=== PATIENT | female | born 1960 | race Caucasian/White ===

== ENCOUNTER 2016-10-12 13:54 | Outpatient (CLI) | payer MEDICAID | END 2016-10-12 13:55 | disposition home or self-care (01) | DX: Z00.00 Encounter for general adult medical examination without abnormal findings (principal); Z80.3 Family history of malignant neoplasm of breast ==

== ENCOUNTER 2017-02-10 14:11 | Outpatient (CLI) | payer MEDICAID | END 2017-02-10 14:12 | disposition home or self-care (01) | DX: R60.0 Localized edema (principal); I10 Essential (primary) hypertension; E03.9 Hypothyroidism, unspecified ==

== ENCOUNTER 2017-02-14 08:18 | Outpatient (CLI) | payer MEDICAID | END 2017-02-14 08:19 | disposition home or self-care (01) | DX: R60.0 Localized edema (principal) ==

== ENCOUNTER 2017-11-15 12:12 | Outpatient (CLI) | payer MEDICAID ==
--- NOTE | 2017-11-15 13:37 | XRAY Report ---
TWO VIEW CHEST: 11/15/2017 CLINICAL INDICATION: Cough. COMPARISON: 07/27/2015. FINDINGS: Frontal and lateral views of the chest demonstrate a normal cardiac silhouette. The lungs are clear. No effusion or pneumothorax is present. IMPRESSION: NORMAL CHEST. TD: 11/15/2017 13:36
== END 2017-11-15 12:13 | disposition home or self-care (01) ==
LOC: DI 12:12
PROVIDERS: ATTEND Nurse Practitioner Family
DX: R05 Cough (principal)
CPT/HCPCS: 71046

== ENCOUNTER 2018-01-30 06:36 | Outpatient (CLI) | payer MEDICAID ==
[2018-01-30 07:19] LABS: BASOPHILS # (AUTO) 0.1 10^3/uL (0.0-0.1); BASOPHILS % (AUTO) 1.1 %; EOSINOPHILS # (AUTO) 0.2 10^3/uL (0.0-0.7); EOSINOPHILS % (AUTO) 2.3 %; HGB - HEMOGLOBIN 15.1 g/dL (12.0-16.0); LYMPHOCYTES # (AUTO) 1.9 10^3/uL (1.5-3.5); LYMPHOCYTES % (AUTO) 29.9 %; MEAN CORPUSCULAR HEMOGLOBIN 30.6 pg (27.0-31.0); MEAN CORPUSCULAR HGB CONC 34.2 g/dL (32.0-36.0); MEAN CORPUSCULAR VOLUME 89.5 fL (81.0-99.0); MEAN PLATELET VOLUME 8.3 fL (7.9-10.8); MONOCYTES # (AUTO) 0.7 10^3/uL (0.0-1.0); MONOCYTES % (AUTO) 10.4 %; NEUTROPHILS # (AUTO) 3.7 10^3/uL (1.5-6.6); NEUTROPHILS % (AUTO) 56.3 %; PLT - PLATELET COUNT 223 10^3/uL (130-450); RED BLOOD COUNT 4.92 10^6/uL (4.20-5.40); RED CELL DISTRIBUTION WIDTH 13.4 % (12.0-15.0); WHITE BLOOD COUNT 6.5 x10^3/uL (4.8-10.8)
[2018-01-30 07:23] LABS: ALBUMIN 4.4 g/dL (3.2-5.5); ALBUMIN/GLOBULIN RATIO 1.4 (1.0-2.2); ALKALINE PHOSPHATASE 56 IU/L (42-121); ALT ALANINE AMINOTRANSFERASE 80 IU/L (10-60); AST ASPARTATE AMINOTRANSFERASE 55 IU/L (10-42); BILIRUBIN,TOTAL 0.7 mg/dL (0.2-1.0); BUN - BLOOD UREA NITROGEN 18 mg/dL (6-20); CALCIUM 9.4 mg/dL (8.5-10.3); CARBON DIOXIDE - CO2 29 mmol/L (21-32); CHLORIDE 98 mmol/L (101-111); CHOL/HDL RATIO 4.7 (<4.4); CHOLESTEROL 237 mg/dL; GFR - MDRD 57 (>89); GLUCOSE 120 mg/dL (70-100); HDL CHOLESTEROL 50 mg/dL; LDL CHOLESTEROL,CALCULATED 160 mg/dL; LDL/HDL RATIO 3.2 (<4.4); SODIUM 137 mmol/L (135-145); TOTAL PROTEIN 7.6 g/dL (6.7-8.2); VLDL CHOLESTEROL 27 mg/dL
== END 2018-01-30 06:37 | disposition home or self-care (01) ==
LOC: LAB 06:36
PROVIDERS: ATTEND Nurse Practitioner Family
DX: I10 Essential (primary) hypertension (principal); E78.5 Hyperlipidemia, unspecified; E03.9 Hypothyroidism, unspecified
CPT/HCPCS: 36415; 80053; 80061; 83721; 84443; 85025

== ENCOUNTER 2018-03-15 12:44 | Outpatient (CLI) | payer MEDICAID ==
--- NOTE | 2018-03-15 14:46 | Mammography Report ---
BILATERAL MAMMOGRAM WITH RIGHT BREAST ULTRASOUND: 03/15/2018 HISTORY: Palpable right breast lump, right breast itching. TECHNIQUE: Bilateral digital CC and MLO projections with additional spot compression and true lateral views of the right breast. FINDINGS: The breast tissue is heterogeneously dense. A few scattered benign appearing calcifications are seen in both breasts. There is no dominant mass, skin thickening, or obvious architectural distortion. There is asymmetric increased density in the right upper outer quadrant in comparison to the left. No abnormality is seen in the 6:30 position right breast at the site of the clinically palpable lump. RIGHT BREAST ULTRASOUND TECHNIQUE: Real-time scanning was performed with sales representative girls' apparel static images obtained. FINDINGS: Ultrasound examination is performed of the right upper outer quadrant and the right 6:30 position. No cystic or solid mass, abnormal fluid collection or other abnormality is seen. IMPRESSION: 1. PROBABLY BENIGN FINDING RIGHT BREAST. BI-RADS CATEGORY 3 - PROBABLE BENIGN FINDING. SHORT-TERM FOLLOW UP UNILATERAL RIGHT BREAST MAMMOGRAM IN 6 MONTHS FOR ASYMMETRIC INCREASED DENSITY RIGHT UPPER OUTER QUADRANT. NO FINDING TO ACCOUNT FOR THE PALPABLE LUMP IS SEEN. STANDARD QUALIFYING STATEMENTS 1. This examination was reviewed with the aid of Computer-Aided Detection (CAD) . 2. A negative or benign imaging report should not delay biopsy if clinically suspicious findings are present. Consider surgical consultation if warranted. More than 5 % of cancers are not identified by imaging. 3. Dense breasts may obscure an underlying neoplasm. TD: 03/15/2018 14:15 REVISED: REPORT ORIG. SIGNED ON 03/15/2018@1552; ORDERS LINKED ON 2017jll MTDD
== END 2018-03-15 12:45 | disposition home or self-care (01) ==
LOC: DI 12:44
PROVIDERS: ATTEND Nurse Practitioner Family
DX: N63.13 Unspecified lump in the right breast, lower outer quadrant (principal)
CPT/HCPCS: 76642; 77066

== ENCOUNTER 2018-08-20 07:27 | Outpatient (CLI) | payer MEDICAID ==
[2018-08-20 07:43] LABS: BASOPHILS # (AUTO) 0.1 10^3/uL (0.0-0.1); BASOPHILS % (AUTO) 1.6 %; EOSINOPHILS # (AUTO) 0.3 10^3/uL (0.0-0.7); EOSINOPHILS % (AUTO) 4.4 %; HGB - HEMOGLOBIN 14.8 g/dL (12.0-16.0); LYMPHOCYTES # (AUTO) 1.8 10^3/uL (1.5-3.5); MEAN CORPUSCULAR HEMOGLOBIN 31.2 pg (27.0-31.0); MEAN CORPUSCULAR HGB CONC 34.2 g/dL (32.0-36.0); MEAN CORPUSCULAR VOLUME 91.1 fL (81.0-99.0); MEAN PLATELET VOLUME 7.5 fL (7.9-10.8); MONOCYTES # (AUTO) 0.5 10^3/uL (0.0-1.0); MONOCYTES % (AUTO) 8.8 %; NEUTROPHILS # (AUTO) 3.2 10^3/uL (1.5-6.6); NEUTROPHILS % (AUTO) 54.2 %; PLT - PLATELET COUNT 239 10^3/uL (130-450); RED BLOOD COUNT 4.74 10^6/uL (4.20-5.40); RED CELL DISTRIBUTION WIDTH 13.2 % (12.0-15.0); WHITE BLOOD COUNT 5.8 x10^3/uL (4.8-10.8)
[2018-08-20 08:00] LABS: HB2 TOTAL 16.1 g/dL; HEMOGLOBIN A1C 0.61 g/dL; HEMOGLOBIN A1C % 5.6 % (4.6-6.2)
[2018-08-20 08:03] LABS: ALBUMIN 4.3 g/dL (3.2-5.5); ALBUMIN/GLOBULIN RATIO 1.5 (1.0-2.2); ALKALINE PHOSPHATASE 57 IU/L (42-121); ALT ALANINE AMINOTRANSFERASE 66 IU/L (10-60); AST ASPARTATE AMINOTRANSFERASE 46 IU/L (10-42); BILIRUBIN,TOTAL 0.9 mg/dL (0.2-1.0); BUN - BLOOD UREA NITROGEN 13 mg/dL (6-20); CALCIUM 9.4 mg/dL (8.5-10.3); CARBON DIOXIDE - CO2 31 mmol/L (21-32); CHLORIDE 100 mmol/L (101-111); CHOL/HDL RATIO 4.6 (<4.4); CHOLESTEROL 264 mg/dL; CREATININE 1.1 mg/dL (0.4-1.0); GFR - MDRD 51 (>89); GLUCOSE 117 mg/dL (70-100); HDL CHOLESTEROL 58 mg/dL; LDL CHOLESTEROL,CALCULATED 170 mg/dL; LDL/HDL RATIO 2.9 (<4.4); SODIUM 137 mmol/L (135-145); TOTAL PROTEIN 7.2 g/dL (6.7-8.2); VLDL CHOLESTEROL 36 mg/dL
== END 2018-08-20 07:28 | disposition home or self-care (01) ==
LOC: LAB 07:27
PROVIDERS: ATTEND Nurse Practitioner Family
DX: I10 Essential (primary) hypertension (principal); E78.5 Hyperlipidemia, unspecified; Z13.1 Encounter for screening for diabetes mellitus; E03.9 Hypothyroidism, unspecified
CPT/HCPCS: 36415; 80053; 80061; 83036; 83721; 84443; 85025

== ENCOUNTER 2018-08-31 13:04 | Outpatient (CLI) | payer MEDICAID ==
--- NOTE | 2018-08-31 14:29 | Mammography Report ---
Reason: BREAST LUMP OR MASS, RIGHT Procedure Date: 08/31/2018 Accession Number: [id number] / [id number] Procedure: DEEPIKA - Diagnostic Dig RT CPT Code: FULL RESULT: EXAM: Diagnostic Dig RT DATE: 08/31/2018 2:00 PM CLINICAL HISTORY: 57-year-old female presents for diagnostic right breast mammography to follow up on previous palpable right breast lump with right breast imaging. TECHNIQUE: Right breast CC and MLO views were obtained with 2-D and 3-D technique. COMPARISON: 03/15/2018, 10/12/2016, 05/31/2013, 03/25/2011. FINDINGS: The right breast demonstrates heterogeneously dense fibroglandular parenchyma. Coarse typically benign calcifications are identified. No suspicious mass, calcifications or architectural distortion is noted. IMPRESSION: Benign findings RECOMMENDATION: Recommend routine annual Screening mammography unless otherwise clinically indicated. BIRADS CATEGORY 2: Benign findings STANDARD QUALIFYING STATEMENTS: 1. This examination was not reviewed with the aid of Computer-Aided Detection (CAD). 2. A negative or benign imaging report should not delay biopsy if clinically suspicious findings are present. Consider surgical consultation if warrented. More than 5% of cancers are not identified by imaging. 3. Dense breasts may obscure an underlying neoplasm. 4. This examination was reviewed with the aid of 3D imaging (tomography).
== END 2018-08-31 13:05 | disposition home or self-care (01) ==
LOC: DI 13:04
PROVIDERS: ATTEND Nurse Practitioner Family
DX: N63.10 Unspecified lump in the right breast, unspecified quadrant (principal)

== ENCOUNTER 2019-02-04 08:00 | Outpatient (CLI) | payer MEDICAID ==
[2019-02-04 19:02] LABS: THYROID STIMULATING HORMONE 0.33 uIU/mL (0.34-5.60)
[2019-02-04 19:04] LABS: FREE T4 (FREE THYROXINE) 1.14 ng/dL (0.58-1.64)
== END 2019-02-04 23:59 | disposition home or self-care (01) ==
LOC: LAB.F 08:00
PROVIDERS: ATTEND Nurse Practitioner Family
DX: E03.9 Hypothyroidism, unspecified (principal)
CPT/HCPCS: 36415; 84439; 84443

== ENCOUNTER 2019-05-15 15:33 | Emergency (ER) | payer MEDICAID ==
[2019-05-15] MEDS ORDERED: KETOROLAC 60 MG/2 ML VIAL IM STA (16:00)
--- NOTE | 2019-05-15 16:06 | ED Physician Documentation ---
History of Present Illness - Stated complaint Stated Complaint: HEADACHE/NAUSEA - Chief complaint Chief Complaint: Neuro - History obtained from History obtained from: Patient - History of Present Illness Timing: How many days ago (4) Pain level max: 7 Pain level now: 5 - Additonal information Additional information: 58-year-old female presents to the emergency department with right-sided headache for the past 4 days. Nothing makes it better or worse. Took Motrin without relief. Does not have a history of headaches. No visual changes. No neurological deficits. No trauma. Does not change with light or sound. No rhinorrhea or congestion. No fevers. No neck pain. Review of Systems Ten Systems: 10 systems reviewed and negative Constitutional: denies: Fever, Chills Ears: denies: Ear pain Nose: denies: Rhinorrhea / runny nose, Congestion Respiratory: denies: Cough GI: reports: Nausea. denies: Vomiting, Diarrhea : denies: Dysuria, Frequency, Hesitancy Skin: denies: Rash Musculoskeletal: denies: Neck pain, Back pain Neurologic: denies: Focal weakness, Numbness PD PAST MEDICAL HISTORY - Past Medical History Cardiovascular: Hypertension Endocrine/Autoimmune: HyPOthyroidism Psych: Anxiety, Claustrophobia - Past Surgical History Past Surgical History: Yes - Present Medications Home Medications: Ambulatory Orders Medication Instructions Recorded Confirmed Amlodipine Besylate 5 mg PO BID 10/15/13 07/27/15 Albuterol [Ventolin Hfa] 1 puffs INH DAILY 07/27/15 07/27/15 Fluticasone [Flonase] 1 sprays TYREE DAILY 07/27/15 07/27/15 Levothyroxine [Synthroid] 125 mcg PO DAILY 07/27/15 07/27/15 ARIPiprazole [Aripiprazole] 2 mg PO DAILY 12/11/16 12/11/16 Gabapentin 300 mg PO TID #90 capsule 12/11/16 lamoTRIgine [LaMICtal] 100 mg PO DAILY 12/11/16 12/11/16 SUMAtriptan [Imitrex] 25 mg PO ONCE PRN #7 tablet 05/15/19 - Allergies Allergies/Adverse Reactions: Allergies Allergy/AdvReac Type Severity Reaction Status Date / Time lisinopril Allergy Mild swelling/co Verified 05/15/19 15:45 ugh - Social History Does the pt smoke?: No Smoking Status: Never smoker Does the pt drink ETOH?: No Does the pt have substance abuse?: No - Immunizations Immunizations are current?: Yes PD ED PE NORMAL - Vitals Vital signs reviewed: Yes - General General: Alert and oriented X 3, No acute distress - HEENT HEENT: Moist mucous membranes - Neck Neck: Supple, no meningeal sign - Cardiac Cardiac: RRR, Strong equal pulses - Respiratory Respiratory: No respiratory distress, Clear bilaterally - Abdomen Abdomen: Soft, Non tender, Non distended - Derm Derm: Warm and dry, No rash - Extremities Extremities: No edema - Neuro Neuro: Alert and oriented X 3, inner layer scrubber tender 2-12 intact, No motor deficit, No sensory deficit, Normal speech Eye Opening: Spontaneous Motor: Obeys Commands Verbal: Oriented GCS Score: 15 - Psych Psych: Normal mood, Normal affect Results - Vitals Vitals: Oxygen O2 Source Room air - Rads (name of study) head ct Radiology: Prelim report reviewed, EMP read contemporaneously, See rad report (CSF density prominence in the right parieto-occipital sulcus and ipsilateral narrowing of the ventricular horn. This can be seen in the setting of an isodense subdural collection or arachnoid cyst.) brain mri Radiology: Prelim report reviewed, EMP read contemporaneously, See rad report (No definite acute intracranial pathology seen. Specifically no acute infarct, acute intracranial hemorrhage, mass, hydrocephalus or midline shift. There is a prominent probable arachnoid cyst overlying the right parieto-occipital junction measuring 13 x 28 x 10 mm) PD MEDICAL DECISION MAKING - ED course Complexity details: reviewed results, re-evaluated patient, considered differential, d/w patient ED course: 58-year-old female with a headache for the past 4 days. No history of same. Possible isodense subdural hemorrhage on CT scan. I discussed with radiology, Dr. Pop who recommends an MRI. Brain MRI shows an arachnoid cyst. Headache treated like a migraine and improved. We will follow-up with PCP for further care. Patient counseled regarding signs and symptoms for which I believe and urgent re-evaluation would be necessary. Patient with good understanding of and agreement to plan and is comfortable going home at this time This document was made in part using voice recognition software. While efforts are made to proofread this document, sound alike and grammatical errors may occur. Departure - Departure Disposition: 01 Home, Self Care Clinical Impression: Headache Qualifiers: Headache type: unspecified Headache chronicity pattern: acute headache Intractability: not intractable Qualified Code(s): R51 - Headache Condition: Good Instructions: ED Cephalgia Unspecified Follow-Up: Francheska Khan PA-C [Primary Care Provider] - Within 1 week Prescriptions: SUMAtriptan [Imitrex] 25 mg PO ONCE PRN #7 tablet PRN Reason: headache Comments: You have an arachnoid cyst in your head. This is a common finding. It is not dangerous. Return if you worsen. Follow-up with your doctor for further care. Discharge Date/Time: 05/15/19 21:50
--- NOTE | 2019-05-15 16:29 | CT Report ---
Reason: R sided TILLMAN x4 days Procedure Date: 05/15/2019 Accession Number: [id number] / [id number] Procedure: CT - HEAD WO CPT Code: FULL RESULT: EXAM: HEAD WO EXAM DATE: 05/15/2019 04:15 PM CLINICAL HISTORY: Right sided headache x4 days. COMPARISON: None. TECHNIQUE: Multiaxial CT images were obtained from the foramen magnum to the vertex. Reformats: Sagittal and coronal. IV contrast: None. In accordance with CT protocol optimization, one or more of the following dose reduction techniques were utilized for this exam: automated exposure control, adjustment of mA and/or KV based on patient size, or use of iterative reconstructive technique. FINDINGS: Parenchyma: No acute intraparenchymal hemorrhage. No evidence of mass, midline shift. Pugh-white differentiation is distinct. Extraaxial Spaces: Basal cisterns are preserved. There is a CSF density right parietal triangular shape 3.6 x 1.0 x 2.0 cm prominence of the superior right parieto-occipital sulcus. No hyperdense extra-axial collection to suggest acute intracranial bleed. Ventricles: The posterior horn of the right lateral ventricle is asymmetrically collapsed. Sinuses and Orbits: Imaged paranasal sinuses, orbits, and mastoids show no significant abnormality. Bones: No evidence of fracture or calvarial defect. Other: None. IMPRESSION: CSF density prominence in the right parieto-occipital sulcus and ipsilateral narrowing of the ventricular horn. This can be seen in the setting of an isodense subdural collection or arachnoid cyst. RADIA
[2019-05-15] MEDS ORDERED: diazePAM INJ 5 MG/ML SYRINGE IVP STA ×2 (16:47→18:32)
--- NOTE | 2019-05-15 19:59 | MRI Report ---
Reason: TILLMAN, poss isodense SDH on CT Procedure Date: 05/15/2019 Accession Number: [id number] / [id number] Procedure: MRI - Brain W/O CPT Code: FULL RESULT: EXAM: MRI BRAIN WITHOUT CONTRAST EXAM DATE: 05/15/2019 07:30 PM. CLINICAL HISTORY: 58-year-old presenting with headache with recent imaging suggested potential isodense subdural hematoma. Evaluate for intracranial pathology. COMPARISON: CT head 05/15/2019. TECHNIQUE: Multiplanar, multisequence T1-weighted and fluid-sensitive MR sequences of the brain were performed. Sequences optimized for routine evaluation. Other: None. IV Contrast: None. FINDINGS: Brain Volume: Normal for age. Parenchyma/Dura: No acute parenchymal hemorrhage, mass, or midline shift. Mild bilateral areas of T2/FLAIR signal hyperintensity seen. No areas of restricted diffusion seen to suggest acute infarct. No definite abnormal areas of parenchymal susceptibility artifact. Ventricles/Cisterns: No hydrocephalus. There is a prominent fluid collection that follows CSF on all sequences overlying the right parieto-occipital junction measuring 13 x 28 x 10 mm (CC by TR by AP) likely representing arachnoid cyst. No definite abnormal extra-axial fluid collection/mass seen. Orbits: Symmetric and unremarkable. Sella Turcica: The pituitary gland, cavernous sinuses, suprasellar cistern and optic chiasm are unremarkable. IAC: Symmetric and unremarkable. Vasculature: Normal signal flow void is seen in the major arterial structures at the skull base. Sinuses: Tiny bilateral maxillary mucosal retention cyst versus polyps. Bones: No focal pathologic appearing marrow signal changes. Other: None. IMPRESSION: 1. No definite acute intracranial pathology seen; specifically, no acute infarct, acute intracranial hemorrhage, mass, hydrocephalus, or midline shift. 2. There is a prominent probable arachnoid cyst overlying the right parieto-occipital junction measuring 13 x 28 x 10 mm (CC by TR by AP). RADIA
[2019-05-15] MEDS ORDERED: diphenhydrAMINE INJ 50 MG/ML VIAL IVP STA (20:42)
[2019-05-15] MEDS ORDERED: PROCHLORPERAZINE 10 MG/2 ML VIAL IVP STA (20:42)
[2019-05-15 21:42] VITALS: BP 124/83
== END 2019-05-15 21:50 | disposition home or self-care (01) ==
LOC: ED 15:33
DX: R51 Headache (principal); I10 Essential (primary) hypertension
CPT/HCPCS: 70450; 70551; 96372; 96374; 96375; 96376; 99284; J1200

== ENCOUNTER 2019-06-25 09:09 | Outpatient (CLI) | payer MEDICAID ==
[2019-06-25 09:22] LABS: BASOPHILS # (AUTO) 0.1 10^3/uL (0.0-0.1); BASOPHILS % (AUTO) 1.2 %; EOSINOPHILS # (AUTO) 0.3 10^3/uL (0.0-0.7); EOSINOPHILS % (AUTO) 4.5 %; LYMPHOCYTES % (AUTO) 31.2 %; MEAN CORPUSCULAR HEMOGLOBIN 31.3 pg (27.0-31.0); MEAN CORPUSCULAR HGB CONC 34.3 g/dL (32.0-36.0); MEAN PLATELET VOLUME 9.6 fL (7.9-10.8); MONOCYTES # (AUTO) 0.6 10^3/uL (0.0-1.0); MONOCYTES % (AUTO) 9.1 %; NEUTROPHILS # (AUTO) 3.5 10^3/uL (1.5-6.6); NEUTROPHILS % (AUTO) 53.7 %; PLT - PLATELET COUNT 264 10^3/uL (130-450); RED CELL DISTRIBUTION WIDTH 12.5 % (12.0-15.0); WHITE BLOOD COUNT 6.5 x10^3/uL (4.8-10.8)
[2019-06-25 09:43] LABS: HB2 TOTAL 15.3 g/dL; HEMOGLOBIN A1C 0.6 g/dL; HEMOGLOBIN A1C % 5.7 % (4.6-6.2)
[2019-06-25 09:50] LABS: % IRON SATURATION 40 % (20-50); ALBUMIN/GLOBULIN RATIO 1.2 (1.0-2.2); ALKALINE PHOSPHATASE 51 IU/L (42-121); ALT ALANINE AMINOTRANSFERASE 55 IU/L (10-60); AST ASPARTATE AMINOTRANSFERASE 39 IU/L (10-42); BILIRUBIN,TOTAL 0.8 mg/dL (0.2-1.0); BUN - BLOOD UREA NITROGEN 13 mg/dL (6-20); CALCIUM 9.5 mg/dL (8.5-10.3); CARBON DIOXIDE - CO2 31 mmol/L (21-32); CHLORIDE 98 mmol/L (101-111); CHOL/HDL RATIO 4.8 (<4.4); CHOLESTEROL 254 mg/dL; CREATININE 0.9 mg/dL (0.4-1.0); GFR - MDRD 64 (>89); GLUCOSE 117 mg/dL (70-100); HDL CHOLESTEROL 53 mg/dL; IRON 137 ug/dL (28-170); LDL CHOLESTEROL,CALCULATED 169 mg/dL; LDL/HDL RATIO 3.2 (<4.4); SODIUM 140 mmol/L (135-145); TOTAL IRON BINDING CAPACITY 343 ug/dL (250-450); TOTAL PROTEIN 7.3 g/dL (6.7-8.2); TRANSFERRIN 245 mg/dL (192-382); VLDL CHOLESTEROL 32 mg/dL
[2019-06-25 10:05] LABS: FERRITIN 199.7 ng/mL (11.0-306.8)
== END 2019-06-25 09:10 | disposition home or self-care (01) ==
LOC: LAB 09:09
PROVIDERS: ATTEND Registered Nurse
DX: R53.83 Other fatigue (principal); E78.5 Hyperlipidemia, unspecified; E03.9 Hypothyroidism, unspecified
CPT/HCPCS: 36415; 80053; 80061; 82728; 83036; 83540; 83721; 84443; 84466; 85025

== ENCOUNTER 2019-07-11 13:06 | Outpatient (CLI) | payer MEDICAID ==
--- NOTE | 2019-07-11 14:45 | Mammography Report ---
Reason: ANNUAL SCREENING Procedure Date: 07/11/2019 Accession Number: [id number] / [id number] Procedure: DEEPIKA - Screening Mammo w/Oliver CPT Code: FULL RESULT: EXAM: Screening Mammo w/Oliver DATE: 07/11/2019 2:00 PM CLINICAL HISTORY: Screening TECHNIQUE: (B) - Bilateral CC and MLO views were obtained. COMPARISON: 08/31/2018, 03/15/2018, 10/12/2016 PARENCHYMAL PATTERN: (A) - The breasts demonstrate scattered fibroglandular densities bilaterally. FINDINGS: There are no suspicious masses, calcifications, or areas of distortion. IMPRESSION: Negative examination. BI-RADS category 1. RECOMMENDATION: (ANNUAL) - Recommend routine annual screening mammography. BI-RADS CATEGORY: (1) - Negative. STANDARD QUALIFYING STATEMENTS: 1. This examination was not reviewed with the aid of Computer-Aided Detection (CAD). 2. A negative or benign imaging report should not preclude biopsy if clinically suspicious findings are present. 3. Dense breasts may obscure an underlying neoplasm. 4. This examination was reviewed with the aid of 3D breast imaging (tomosynthesis).
== END 2019-07-11 13:07 | disposition home or self-care (01) ==
LOC: DI 13:06
PROVIDERS: ATTEND Registered Nurse
DX: Z12.31 Encounter for screening mammogram for malignant neoplasm of breast (principal)
CPT/HCPCS: 77063; 77067

== ENCOUNTER 2019-10-23 12:39 | Outpatient (CLI) | payer MEDICAID | END 2019-10-23 12:40 | disposition home or self-care (01) | LOC: LAB 12:39 | PROVIDERS: ATTEND Registered Nurse | DX: R53.83 Other fatigue (principal) | CPT/HCPCS: 36415; 80053; 84443; 85025 ==

== ENCOUNTER 2019-11-15 11:17 | Emergency (ER) | payer MEDICAID ==
[2019-11-15] MEDS ORDERED: DEXAMETHASONE 10 MG/ML VIAL PO STA (13:02)
[2019-11-15] MEDS ORDERED: CHERRY SYRUP 10 ML UDC PO ONE (13:02)
[2019-11-15] MEDS ORDERED: KETOROLAC 60 MG/2 ML VIAL IM STA (13:05)
--- NOTE | 2019-11-15 13:05 | ED Physician Documentation ---
PD HPI BACK PAIN - Stated complaint Stated Complaint: BACK PX - Chief complaint Chief Complaint: Back Pain - History obtained from History obtained from: Patient - History of Present Illness Timing - onset: Yesterday Timing - duration: Days (2) Timing - details: Abrupt onset, Still present Location: Lower, Right Quality: Pain, Spasm, Sharp, Similar to prior episodes Associated symptoms: No: Fever, Weakness, Numbness, Incontinent of urine, Unable to urinate, Hematuria, Incontinent of stool Improves with: Rest, Position Worsened by: Movement Contributing factors: Other (carried 2 cases of ensure several days prior to onset.) Similar symptoms before: Diagnosis (back spasm) Recently seen: Other - Additional information Additional information: 59-year-old female with lifelong history of back pains has bent over the day before yesterday and her back locked up on her. She has had persistent pain since. She went in to see a chiropractor yesterday and despite of manipulation she is worse this morning. She is very stiff she is having a hard time driving because is not able to lift her legs normally. She denies any saddle anesthesia or change in her bowel or bladder. She has not had fever. She did lift a 2 cases of Ensure several days prior to the onset of her symptoms. PD PAST MEDICAL HISTORY - Past Medical History Past Medical History: Yes Cardiovascular: Hypertension Neuro: Headaches Endocrine/Autoimmune: HyPOthyroidism Psych: Anxiety, Claustrophobia - Past Surgical History Past Surgical History: Yes - Present Medications Home Medications: Ambulatory Orders Medication Instructions Recorded Confirmed Amlodipine Besylate 5 mg PO BID 10/15/13 07/27/15 Albuterol [Ventolin Hfa] 1 puffs INH DAILY 07/27/15 07/27/15 Fluticasone [Flonase] 1 sprays TYREE DAILY 07/27/15 07/27/15 Levothyroxine [Synthroid] 125 mcg PO DAILY 07/27/15 07/27/15 ARIPiprazole [Aripiprazole] 2 mg PO DAILY 12/11/16 12/11/16 Gabapentin 300 mg PO TID #90 capsule 12/11/16 lamoTRIgine [LaMICtal] 100 mg PO DAILY 12/11/16 12/11/16 SUMAtriptan [Imitrex] 25 mg PO ONCE PRN #7 tablet 05/15/19 Cyclobenzaprine [Flexeril] 10 mg PO TID PRN #20 tablet 11/15/19 Hydrocodone/Acetaminophen 1 - 2 each PO Q6H PRN #14 tablet 11/15/19 [Hydrocodon-Acetaminophen 5-325] - Allergies Allergies/Adverse Reactions: Allergies Allergy/AdvReac Type Severity Reaction Status Date / Time lisinopril Allergy Mild swelling/co Verified 11/15/19 11:21 ugh - Social History Does the pt smoke?: No Smoking Status: Never smoker Does the pt drink ETOH?: No Does the pt have substance abuse?: No - Immunizations Immunizations are current?: Yes - POLST Patient has POLST: No PD ED PE NORMAL - Vitals Vital signs reviewed: Yes (hypertensive ) - General General: Alert and oriented X 3, No acute distress, Well developed/nourished - HEENT HEENT: Atraumatic, PERRL, EOMI - Respiratory Respiratory: No respiratory distress - Back Back: No CVA TTP, No spinal TTP, Other (There is tenderness to the paraspinous muscles of the lower lumbar spine area extending into the right sciatic notch. There is no midline tenderness.) - Derm Derm: Normal color, Warm and dry, No rash - Extremities Extremities: No deformity, Normal ROM s pain, No edema, Other - Neuro Neuro: Alert and oriented X 3, offal separator 2-12 intact, No motor deficit, Normal speech, Other (reports sensory deficit to the web space between the 1st and 2nd toe. ) Eye Opening: Spontaneous Motor: Obeys Commands Verbal: Oriented GCS Score: 15 - Psych Psych: Normal mood, Normal affect Results - Vitals Vitals: Vital Signs - 24 hr 11/15/19 11:21 Temperature 37 C Heart Rate 85 Respiratory 15 Rate Blood Pressure 149/102 H O2 Saturation 97 Oxygen O2 Source Room air PD MEDICAL DECISION MAKING - ED course Complexity details: reviewed old records, considered differential, d/w patient ED course: 59-year-old female with a history of sciatica has acute sciatica worse than usual for her. She is administered dexamethasone 10 mg orally and 60 mg of Toradol IM. We will place her on some pain medication muscle relaxants. I have indicated to the patient to ice and stretch and avoid a heating pack. Departure - Departure Disposition: 01 Home, Self Care Clinical Impression: Sciatica Qualifiers: Laterality: right Qualified Code(s): M54.31 - Sciatica, right side Condition: Stable Instructions: ED Sciatica Follow-Up: Elda Melchor ARNP [Primary Care Provider] - Prescriptions: Cyclobenzaprine [Flexeril] 10 mg PO TID PRN #20 tablet PRN Reason: Spasms Hydrocodone/Acetaminophen [Hydrocodon-Acetaminophen 5-325] 1 - 2 each PO Q6H PRN #14 tablet PRN Reason: pain
[2019-11-15 13:41] VITALS: BP 140/96
== END 2019-11-15 13:40 | disposition home or self-care (01) ==
LOC: ED 11:17
DX: M54.41 Lumbago with sciatica, right side (principal); I10 Essential (primary) hypertension
CPT/HCPCS: 96372; 99281; 99283; A9270

== ENCOUNTER 2020-02-20 07:04 | Outpatient (CLI) | payer MEDICAID ==
[2020-02-20 07:16] LABS: BASOPHILS # (AUTO) 0.1 10^3/uL (0.0-0.1); BASOPHILS % (AUTO) 0.8 %; EOSINOPHILS # (AUTO) 0.2 10^3/uL (0.0-0.7); EOSINOPHILS % (AUTO) 2.8 %; HGB - HEMOGLOBIN 15.7 g/dL (12.0-16.0); LYMPHOCYTES # (AUTO) 2.1 10^3/uL (1.5-3.5); LYMPHOCYTES % (AUTO) 34.7 %; MEAN CORPUSCULAR HEMOGLOBIN 31.6 pg (27.0-31.0); MEAN CORPUSCULAR HGB CONC 34.7 g/dL (32.0-36.0); MEAN CORPUSCULAR VOLUME 91.1 fL (81.0-99.0); MEAN PLATELET VOLUME 9.9 fL (7.9-10.8); MONOCYTES # (AUTO) 0.6 10^3/uL (0.0-1.0); MONOCYTES % (AUTO) 9.4 %; NEUTROPHILS # (AUTO) 3.2 10^3/uL (1.5-6.6); PLT - PLATELET COUNT 269 10^3/uL (130-450); RED BLOOD COUNT 4.97 10^6/uL (4.20-5.40); RED CELL DISTRIBUTION WIDTH 12.5 % (12.0-15.0); WHITE BLOOD COUNT 6.1 x10^3/uL (4.8-10.8)
[2020-02-20 07:34] LABS: HB2 TOTAL 16.5 g/dL; HEMOGLOBIN A1C 0.68 g/dL; HEMOGLOBIN A1C % 5.9 % (4.6-6.2)
[2020-02-20 08:00] LABS: ALBUMIN 4.1 g/dL (3.2-5.5); ALBUMIN/GLOBULIN RATIO 1.2 (1.0-2.2); ALKALINE PHOSPHATASE 54 IU/L (42-121); ALT ALANINE AMINOTRANSFERASE 59 IU/L (10-60); AST ASPARTATE AMINOTRANSFERASE 47 IU/L (10-42); BILIRUBIN,TOTAL 1.1 mg/dL (0.2-1.0); BUN - BLOOD UREA NITROGEN 17 mg/dL (6-20); CALCIUM 9.5 mg/dL (8.5-10.3); CARBON DIOXIDE - CO2 27 mmol/L (21-32); CHLORIDE 98 mmol/L (101-111); CHOL/HDL RATIO 4.6 (<4.4); CHOLESTEROL 262 mg/dL; CREATININE 0.8 mg/dL (0.4-1.0); GLUCOSE 130 mg/dL (70-100); HDL CHOLESTEROL 57 mg/dL; LDL CHOLESTEROL,CALCULATED 173 mg/dL; SODIUM 135 mmol/L (135-145); TOTAL PROTEIN 7.6 g/dL (6.7-8.2); VLDL CHOLESTEROL 32 mg/dL
== END 2020-02-20 07:05 | disposition home or self-care (01) ==
LOC: LAB 07:04
PROVIDERS: ATTEND Registered Nurse
DX: I10 Essential (primary) hypertension (principal); E78.5 Hyperlipidemia, unspecified; E03.9 Hypothyroidism, unspecified
CPT/HCPCS: 36415; 80053; 80061; 83036; 83721; 84443; 85025

== ENCOUNTER 2020-03-11 16:20 | Outpatient (CLI) | payer MEDICAID ==
[2020-03-11 16:39] LABS: ALBUMIN 4.2 g/dL (3.2-5.5); ALBUMIN/GLOBULIN RATIO 1.3 (1.0-2.2); BILIRUBIN,TOTAL 0.7 mg/dL (0.2-1.0); CALCIUM 9.2 mg/dL (8.5-10.3); CREATININE 0.8 mg/dL (0.4-1.0); TOTAL PROTEIN 7.4 g/dL (6.7-8.2)
--- NOTE | 2020-03-12 08:25 | Ultrasound Report ---
Reason: ABD TENDERNESS LLQ Procedure Date: 03/11/2020 Accession Number: [id number] / [id number] Procedure: US - Pelvic w/Transvaginal CPT Code: Final Report FULL RESULT: PROCEDURE: Pelvic w/Transvaginal INDICATIONS: ABD TENDERNESS LLQ TECHNIQUE: Real-time scanning was performed of the pelvic organs, with image documentation. Additional endovaginal scanning necessary due to incomplete visualization of the adnexal and endometrial structures by transabdominal scanning. COMPARISON: Pelvic ultrasound 06/28/2013. FINDINGS: Transabdominal scanning: Limited scanning through the kidneys demonstrates no hydronephrosis. Within the inferior pole of the right kidney, there is a small hyperechoic non-shadowing lesion measuring approximately 0.9 x 0.7 cm suggestive of an angiomyolipoma. No pathologic free abdominal or pelvic fluid. Endovaginal scanning: Uterus: Uterus measures 6.7 x 3.1 x 4.1 cm. The endometrium is slightly heterogeneous and measures approximately 0.7 cm in combined thickness but is not well seen. No definite internal vascularity on color Doppler interrogation. There is a small ovoid hypoechoic region suggestive of a submucosal fibroid adjacent to the left margin of the endometrium in the uterine body measuring approximately 0.8 x 0.5 x 0.8 cm. This appears similar to the prior study given differences in technique. Ovaries: The ovaries are not well visualized in the adnexa. The presumed right ovary measures 1.9 x 1.5 x 1.4 cm and the presumed left ovary measures 1.4 x 1.1 x 2.5 cm. Otherwise, no definite adnexal mass identified. IMPRESSION: 1. Limited evaluation of the ovaries which are not well seen in the adnexae. No definite adnexal masses. If clinical concern persists, consider further evaluation with a CT or pelvic MRI. 2. Small fibroid redemonstrated in the uterus with possible submucosal involvement. 3. Small hyperechoic lesion in the right kidney is nonspecific and may represent a small angiomyolipoma. Further evaluation may be obtained with cross-sectional imaging if clinically indicated. Reviewed by: Ranjit Ibarra MD on 03/12/2020 8:24 AM PDT Approved by: Ranjit Ibarra MD on 03/12/2020 8:24 AM PDT Station ID: [id number]
== END 2020-03-11 16:21 | disposition home or self-care (01) ==
LOC: DI 16:20
PROVIDERS: ATTEND Physician Assistant
DX: D25.9 Leiomyoma of uterus, unspecified (principal); R93.421 Abnormal radiologic findings on diagnostic imaging of right kidney; E87.6 Hypokalemia
CPT/HCPCS: 36415; 76830; 76856; 80053

== ENCOUNTER 2020-03-31 08:00 | Outpatient (CLI) | payer MEDICAID ==
[2020-04-01 11:11] LABS: BILIRUBIN,URINE NEGATIVE (NEGATIVE); GLUCOSE, URINE (UA) NEGATIVE (NEGATIVE); KETONES,URINE (UA) NEGATIVE (NEGATIVE); LEUKOCYTE ESTERASE, URINE NEGATIVE (NEGATIVE); NITRITE,URINE NEGATIVE (NEGATIVE); OCCULT BLOOD,URINE NEGATIVE (NEGATIVE); PH,URINE 6.5 PH (5.0-7.5); PROTEIN,URINE NEGATIVE (NEGATIVE); UROBILINOGEN,URINE 0.2 (NORMAL) E.U./dL (NORMAL)
[2020-04-01 11:27] LABS: CLARITY,URINE CLEAR (CLEAR)
[2020-04-01 11:32] LABS: BACTERIA,URINE Few /HPF (None Seen); RBC,URINE 0-5 /HPF (0-5); SQUAMOUS EPITHELIAL CELL,UR RARE Squamous (<= Few)
[2020-04-01 20:52] LABS: CANDIDA GROUP DNA NEGATIVE (NEGATIVE); CANDIDA KRUSEI DNA NEGATIVE (NEGATIVE); TRICHOMONAS VAGINALIS DNA NEGATIVE (NEGATIVE)
== END 2020-03-31 23:59 | disposition home or self-care (01) ==
LOC: LAB.R 08:00
PROVIDERS: ATTEND Obstetrics & Gynecology
DX: R10.2 Pelvic and perineal pain (principal); R39.89 Other symptoms and signs involving the genitourinary system; R10.9 Unspecified abdominal pain
CPT/HCPCS: 81001; 87086; 87661; 87801

== ENCOUNTER 2020-04-03 15:46 | Outpatient (CLI) | payer MEDICAID ==
[2020-04-03] MEDS ORDERED: IOVERSOL 320 100 ML VIAL IVP ONE ×3 (15:55→16:38)
--- NOTE | 2020-04-03 17:15 | CT Report ---
PROCEDURE: ABDOMEN W/WO INDICATIONS: ANGIOMYLIPOMA OF KIDNEY TECHNIQUE: Axial 5 mm thin sections through the abdomen was obtained before and thereafter after dane crystal postcontrast imaging assessing the area of prior sonographic concern for possible angiomyolipoma lower right kidney. COMPARISON: Ultrasound study 03/11/2020 reviewed. FINDINGS: At the lung bases there are no lesions. Within the abdomen the liver and spleen enhance normally cons idering phases of imaging. The kidneys bilaterally are normal in size and position, free of hydroneph rosis or nephrolithiasis. Note is made of a small subcentimeter hypodense structure at the lateral co rtex of the lower third of the right kidney corresponding to the finding of prior sonographic concern , hyperechoic nonshadowing probable angiomyolipoma. This small structure has no associated enhancement or evidence of pseudoaneurysm formation. No additi onal similar structure is seen elsewhere through the kidneys bilaterally. IMPRESSION: Isolated coincidental finding of a subcentimeter presumed angiomyolipoma without evidence of enhancem ent or pseudoaneurysm formation. No follow-up recommended-large angiomyolipomas have a risk of hemorr mally over time but this small structure does not warrant any additional imaging follow-up. Reviewed by: Diego Lazo MD on 04/03/2020 5:14 PM PDT Approved by: Diego Lazo MD on 04/03/2020 5:14 PM PDT Station ID: [id number]
== END 2020-04-03 15:47 | disposition home or self-care (01) ==
LOC: DI 15:46
PROVIDERS: ATTEND Obstetrics & Gynecology
DX: D17.71 Benign lipomatous neoplasm of kidney (principal)
CPT/HCPCS: 74170; Q9967

== ENCOUNTER 2020-04-22 15:35 | Outpatient (CLI) | payer MEDICAID ==
--- NOTE | 2020-04-22 16:43 | XRAY Report ---
PROCEDURE: Lumbar Spine 2 View INDICATIONS: Low back pain TECHNIQUE: 2 views of the lumbar spine were acquired. COMPARISON: None. FINDINGS: There are 5 nonrib-bearing lumbar-type vertebral bodies. Mild levoscoliosis centered at L2-L3 with ap proximately 10 degrees Augustin angle. No listhesis. Multilevel multifactorial degenerative changes worst at L4-L5 and L5 on S1. Approximately 7 mm oval calcific density projecting left lateral to the L3 ve rtebral body, nonspecific. IMPRESSION: Mild lumbar levoscoliosis with lower lumbar spine degenerative changes. Nonspecific calcific density projecting left lateral to the L3 vertebral body. Correlate for potentia l urinary tract calculus, although there are numerous differential considerations. Reviewed by: Marlon Zheng MD on 04/22/2020 4:42 PM PDT Approved by: Marlon Zheng MD on 04/22/2020 4:42 PM PDT Station ID: [id number]
--- NOTE | 2020-04-22 16:49 | XRAY Report ---
PROCEDURE: Hip w/Pelvis 2-3V LT INDICATIONS: LOW BACK PAIN,HIP PAIN LEFT TECHNIQUE: AP pelvis with lateral view(s) of the bilateral hip(s). COMPARISON: None. FINDINGS: Bones: No fractures or dislocations. Pelvic ring appears intact. No suspicious bony lesions. Soft tissues: The visualized bowel gas pattern is normal. No suspicious soft tissue calcifications. IMPRESSION: No acute finding or significant degenerative changes. Reviewed by: Marlon Zheng MD on 04/22/2020 4:47 PM PDT Approved by: Marlon Zheng MD on 04/22/2020 4:47 PM PDT Station ID: [id number]
== END 2020-04-22 15:36 | disposition home or self-care (01) ==
LOC: DI 15:35
PROVIDERS: ATTEND Family Medicine
DX: M47.816 Spondylosis without myelopathy or radiculopathy, lumbar region (principal); M47.817 Spondylosis without myelopathy or radiculopathy, lumbosacral region; M25.552 Pain in left hip; M41.9 Scoliosis, unspecified
CPT/HCPCS: 72100

== ENCOUNTER 2020-04-30 08:58 | Day surgery (SDC) | payer MEDICAID ==
[2020-04-30] MEDS ORDERED: fentaNYL 250 MCG/5 ML VIAL IVP ONE (08:59)
[2020-04-30] MEDS ORDERED: MIDAZOLAM 2 MG/2 ML VIAL IVP ONE (08:59)
[2020-04-30] MEDS ORDERED: LACTATED RINGERS 1,000 ML IV ONE ×2 (09:18→11:35)
[2020-04-30] MEDS ORDERED: SCOPOLAMINE PATCH TOP ONE (10:28)
[2020-04-30] MEDS ORDERED: ONDANSETRON 4 MG/2 ML VIAL ONE (10:28)
[2020-04-30 12:00] VITALS: BP 110/68
== END 2020-04-30 08:59 | disposition home or self-care (01) ==
LOC: SDS 08:58
PROVIDERS: ATTEND Surgery
DX: K59.00 Constipation, unspecified (principal); R10.9 Unspecified abdominal pain; K57.30 Diverticulosis of large intestine without perforation or abscess without bleeding; K64.8 Other hemorrhoids; I10 Essential (primary) hypertension; R14.0 Abdominal distension (gaseous)
CPT/HCPCS: 45378; J3010; J3490; J7120

== ENCOUNTER 2020-06-22 12:50 | Outpatient (CLI) | payer MEDICAID ==
[2020-06-22 13:11] LABS: CALCIUM 10.2 mg/dL (8.5-10.3); CREATININE 0.9 mg/dL (0.4-1.0)
== END 2020-06-22 12:51 | disposition home or self-care (01) ==
LOC: LAB 12:50
PROVIDERS: ATTEND Registered Nurse
DX: E87.6 Hypokalemia (principal)
CPT/HCPCS: 36415; 80048

== ENCOUNTER 2020-09-17 17:08 | Outpatient (CLI) | payer MEDICAID ==
--- NOTE | 2020-09-17 16:57 | XRAY Report ---
PROCEDURE: Finger(s) LT INDICATIONS: L THUMB PX TECHNIQUE: AP hand, 2 views of the left first finger(s) acquired. COMPARISON: None FINDINGS: Bones: No fractures or dislocations. No suspicious bony lesions. Soft tissues: No suspicious soft tissue calcifications. IMPRESSION: No fracture. No osseous lesion. If there are persistent symptoms or continued clinical concern for pa thology, then repeat plain film radiographs (7-10 days) or advanced imaging (CT, MR, bone scan) shoul d be considered for further evaluation. Reviewed by: Alisson Rosario MD, PhD on 09/17/2020 4:56 PM PST Approved by: Alisson Rosario MD, PhD on 09/17/2020 4:56 PM [facility] Station ID: [id number]
== END 2020-09-17 23:59 | disposition home or self-care (01) ==
LOC: DI.N 17:08
PROVIDERS: ATTEND Physician Assistant
DX: M79.645 Pain in left finger(s) (principal)

== ENCOUNTER 2021-03-20 10:23 | Outpatient (CLI) | payer MEDICAID ==
[2021-03-20 10:47] LABS: BASOPHILS # (AUTO) 0.1 10^3/uL (0.0-0.1); BASOPHILS % (AUTO) 0.9 %; EOSINOPHILS # (AUTO) 0.2 10^3/uL (0.0-0.7); EOSINOPHILS % (AUTO) 3.5 %; HCT - HEMATOCRIT 44.7 % (37.0-47.0); HGB - HEMOGLOBIN 15.1 g/dL (12.0-16.0); LYMPHOCYTES # (AUTO) 1.8 10^3/uL (1.5-3.5); LYMPHOCYTES % (AUTO) 31.1 %; MEAN CORPUSCULAR HEMOGLOBIN 30.8 pg (27.0-31.0); MEAN CORPUSCULAR HGB CONC 33.8 g/dL (32.0-36.0); MONOCYTES # (AUTO) 0.7 10^3/uL (0.0-1.0); MONOCYTES % (AUTO) 11.3 %; NEUTROPHILS # (AUTO) 3.1 10^3/uL (1.5-6.6); PLT - PLATELET COUNT 264 10^3/uL (130-450); RED BLOOD COUNT 4.91 10^6/uL (4.20-5.40); RED CELL DISTRIBUTION WIDTH 12.5 % (12.0-15.0); WHITE BLOOD COUNT 5.8 x10^3/uL (4.8-10.8)
[2021-03-20 11:01] LABS: ALBUMIN 4.3 g/dL (3.2-5.5); ALBUMIN/GLOBULIN RATIO 1.3 (1.0-2.2); ALKALINE PHOSPHATASE 58 IU/L (42-121); ALT ALANINE AMINOTRANSFERASE 71 IU/L (10-60); AST ASPARTATE AMINOTRANSFERASE 55 IU/L (10-42); BILIRUBIN,TOTAL 0.9 mg/dL (0.2-1.0); BUN - BLOOD UREA NITROGEN 14 mg/dL (6-20); CALCIUM 9.6 mg/dL (8.5-10.3); CARBON DIOXIDE - CO2 28 mmol/L (21-32); CHLORIDE 98 mmol/L (101-111); CHOL/HDL RATIO 4.3 (<4.4); CHOLESTEROL 264 mg/dL; CREATININE 0.8 mg/dL (0.4-1.0); GFR - MDRD 73 (>89); GLUCOSE 111 mg/dL (70-100); HDL CHOLESTEROL 62 mg/dL; LDL CHOLESTEROL,CALCULATED 176 mg/dL; LDL/HDL RATIO 2.8 (<4.4); POTASSIUM 3.3 mmol/L (3.5-5.0); SODIUM 137 mmol/L (135-145); TOTAL PROTEIN 7.6 g/dL (6.7-8.2); TRIGLYCERIDES 128 mg/dL; VLDL CHOLESTEROL 26 mg/dL
[2021-03-20 11:14] LABS: THYROID STIMULATING HORMONE 0.2 uIU/mL (0.34-5.60)
[2021-03-20 14:57] LABS: FREE T4 (FREE THYROXINE) 1.2 ng/dL (0.58-1.64)
== END 2021-03-20 10:24 | disposition home or self-care (01) ==
LOC: LAB 10:23
PROVIDERS: ATTEND Physician Assistant
DX: R73.01 Impaired fasting glucose (principal); E87.6 Hypokalemia; R53.83 Other fatigue; E66.9 Obesity, unspecified; I10 Essential (primary) hypertension; E78.5 Hyperlipidemia, unspecified; E03.9 Hypothyroidism, unspecified; F41.9 Anxiety disorder, unspecified; F32.9 Major depressive disorder, single episode, unspecified
CPT/HCPCS: 36415; 80053; 80061; 83721; 84439; 84443; 85025

== ENCOUNTER 2021-09-23 07:17 | Outpatient (CLI) | payer MEDICAID ==
[2021-09-23 10:31] LABS: HGB - HEMOGLOBIN 14.8 g/dL (12.0-16.0); WHITE BLOOD COUNT 5.2 x10^3/uL (4.8-10.8)
[2021-09-23 10:32] LABS: BASOPHILS # (AUTO) 0.1 10^3/uL (0.0-0.1); EOSINOPHILS # (AUTO) 0.2 10^3/uL (0.0-0.7); EOSINOPHILS % (AUTO) 3.1 %; HCT - HEMATOCRIT 43.7 % (37.0-47.0); LYMPHOCYTES # (AUTO) 1.7 10^3/uL (1.5-3.5); LYMPHOCYTES % (AUTO) 32.1 %; MEAN CORPUSCULAR HEMOGLOBIN 30.8 pg (27.0-31.0); MEAN CORPUSCULAR HGB CONC 33.9 g/dL (32.0-36.0); MEAN PLATELET VOLUME 10.2 fL (7.9-10.8); MONOCYTES # (AUTO) 0.6 10^3/uL (0.0-1.0); MONOCYTES % (AUTO) 10.9 %; NEUTROPHILS # (AUTO) 2.7 10^3/uL (1.5-6.6); NEUTROPHILS % (AUTO) 52.5 %; PLT - PLATELET COUNT 261 10^3/uL (130-450); RED CELL DISTRIBUTION WIDTH 12.4 % (12.0-15.0)
[2021-09-23 13:51] LABS: ALBUMIN 3.9 g/dL (3.2-5.5); ALBUMIN/GLOBULIN RATIO 1.3 (1.0-2.2); ALKALINE PHOSPHATASE 52 IU/L (42-121); ALT ALANINE AMINOTRANSFERASE 46 IU/L (10-60); AST ASPARTATE AMINOTRANSFERASE 33 IU/L (10-42); BILIRUBIN,TOTAL 1.1 mg/dL (0.2-1.0); BUN - BLOOD UREA NITROGEN 17 mg/dL (6-20); CALCIUM 9.2 mg/dL (8.5-10.3); CARBON DIOXIDE - CO2 25 mmol/L (21-32); CHLORIDE 101 mmol/L (101-111); CHOL/HDL RATIO 4.3 (<4.4); CHOLESTEROL 264 mg/dL; CREATININE 0.8 mg/dL (0.4-1.0); GFR - MDRD 73 (>89); GLUCOSE 122 mg/dL (70-100); HDL CHOLESTEROL 62 mg/dL; LDL CHOLESTEROL,CALCULATED 176 mg/dL; LDL/HDL RATIO 2.8 (<4.4); POTASSIUM 3.4 mmol/L (3.5-5.0); SODIUM 138 mmol/L (135-145); TRIGLYCERIDES 129 mg/dL; VLDL CHOLESTEROL 26 mg/dL
[2021-09-23 14:31] LABS: THYROID STIMULATING HORMONE 1.06 uIU/mL (0.34-5.60)
== END 2021-09-23 07:18 | disposition home or self-care (01) ==
LOC: LAB 07:17
PROVIDERS: ATTEND Internal Medicine
DX: I10 Essential (primary) hypertension (principal); E78.5 Hyperlipidemia, unspecified; E87.6 Hypokalemia; E03.9 Hypothyroidism, unspecified
CPT/HCPCS: 36415; 80053; 80061; 83721; 83735; 84443; 85025

== ENCOUNTER 2022-01-06 07:09 | Outpatient (CLI) | payer MEDICAID ==
[2022-01-06 10:21] LABS: ALBUMIN 4.3 g/dL (3.2-5.5); ALBUMIN/GLOBULIN RATIO 1.5 (1.0-2.2); BILIRUBIN,TOTAL 0.9 mg/dL (0.2-1.0); CALCIUM 9.6 mg/dL (8.5-10.3); CREATININE 0.8 mg/dL (0.4-1.0); POTASSIUM 3.5 mmol/L (3.5-5.0); TOTAL PROTEIN 7.2 g/dL (6.7-8.2)
== END 2022-01-06 07:10 | disposition home or self-care (01) ==
LOC: LAB 07:09
PROVIDERS: ATTEND Internal Medicine
DX: E87.6 Hypokalemia (principal)
CPT/HCPCS: 36415; 80053

== ENCOUNTER 2022-03-24 08:35 | Outpatient (CLI) | payer MEDICAID ==
[2022-03-24 09:02] LABS: CHOLESTEROL 142 mg/dL; HDL CHOLESTEROL 70 mg/dL; LDL CHOLESTEROL,CALCULATED 57 mg/dL; LDL/HDL RATIO 0.8 (<4.4); TRIGLYCERIDES 75 mg/dL; VLDL CHOLESTEROL 15 mg/dL
[2022-03-24 10:39] LABS: ESTIMATED AVERAGE GLUCOSE 126 mg/dL (70-100)
== END 2022-03-24 08:36 | disposition home or self-care (01) ==
LOC: LAB 08:35
PROVIDERS: ATTEND Nurse Practitioner Family
DX: E78.5 Hyperlipidemia, unspecified (principal); E55.9 Vitamin D deficiency, unspecified; Z13.1 Encounter for screening for diabetes mellitus; E66.9 Obesity, unspecified
CPT/HCPCS: 36415; 80061; 82306; 83036; 83721

== ENCOUNTER 2022-05-02 13:21 | Outpatient (CLI) | payer MEDICAID ==
--- NOTE | 2022-05-02 16:44 | CT Report ---
PROCEDURE: Abdomen/Pelvis WO INDICATIONS: LEFT FLANK PAIN TECHNIQUE: Noncontrast 5 mm thick sections acquired from the diaphragms to the symphysis. 5 mm coronal and sagi ttal reformats were then performed. For radiation dose reduction, the following was used: automated exposure control, adjustment of mA and/or kV according to patient size. COMPARISON: CT abdomen with and without, 04/03/2020. FINDINGS: Image quality: Excellent. ABDOMEN: Lung bases: Lung bases are clear. Heart size is normal. Small hiatal hernia. Solid organs: Liver and spleen are normal in size. Mild hepatic steatosis. Gallbladder is normal. P ancreas is normal in contours. No adrenal nodules. Kidneys are normal in size, without hydronephros is or nephrolithiasis. There is a 0.5 cm hypodense nodule in the lateral cortex of right kidney, unc hanged. Peritoneum and bowel: Unenhanced bowel loops demonstrate normal wall thickness and caliber. There i s a large amount stool in colon. Normal appendix. No free fluid or air. Nodes and vessels: No retroperitoneal or mesenteric adenopathy by size criteria. Aorta and inferior vena cava are normal in caliber. Miscellaneous: No ventral hernias. PELVIS: Genitourinary: Bladder wall thickness is normal. Uterus and ovaries are grossly normal. No patholog ical free fluid in the cul-de-sac or adnexa. Miscellaneous: No inguinal hernias or adenopathy. Bones: No suspicious bony lesions. No vertebral body compression fractures. Mild levoscoliosis. Mo derate degenerative changes in lumbar spine. IMPRESSION: 1. No renal stone or hydronephrosis. A cause for left flank pain is not definitively identified. 2. A large amount of stool in colon. 3. Stable 0.5 cm hypodense nodule in right kidney, most likely a small angiomyolipoma. 4. Hepatic steatosis. 5. Small hiatal hernia. Reviewed by: Musa Garcia MD on 05/02/2022 4:42 PM PDT Approved by: Musa Garcia MD on 05/02/2022 4:42 PM PDT Station ID: [id number]
== END 2022-05-02 13:22 | disposition home or self-care (01) ==
LOC: DI 13:21
PROVIDERS: ATTEND Internal Medicine
DX: R10.9 Unspecified abdominal pain (principal); N28.89 Other specified disorders of kidney and ureter; K76.0 Fatty (change of) liver, not elsewhere classified; K44.9 Diaphragmatic hernia without obstruction or gangrene

== ENCOUNTER 2022-11-29 20:13 | Emergency (ER) | payer MEDICAID ==
[2022-11-29] MEDS ORDERED: SODIUM CHLORIDE 0.9% 1,000 ML IV STA (20:45)
[2022-11-29 21:07] LABS: BASOPHILS % (AUTO) 0.2 %; EOSINOPHILS # (AUTO) 0.1 10^3/uL (0.0-0.7); HCT - HEMATOCRIT 41.4 % (37.0-47.0); HGB - HEMOGLOBIN 13.9 g/dL (12.0-16.0); LYMPHOCYTES # (AUTO) 0.5 10^3/uL (1.5-3.5); LYMPHOCYTES % (AUTO) 5.8 %; MEAN CORPUSCULAR HEMOGLOBIN 30.1 pg (27.0-31.0); MEAN CORPUSCULAR HGB CONC 33.6 g/dL (32.0-36.0); MEAN CORPUSCULAR VOLUME 89.6 fL (81.0-99.0); MEAN PLATELET VOLUME 9.5 fL (7.9-10.8); MONOCYTES # (AUTO) 0.6 10^3/uL (0.0-1.0); MONOCYTES % (AUTO) 7.8 %; NEUTROPHILS # (AUTO) 6.9 10^3/uL (1.5-6.6); PLT - PLATELET COUNT 195 10^3/uL (130-450); RED BLOOD COUNT 4.62 10^6/uL (4.20-5.40); RED CELL DISTRIBUTION WIDTH 12.4 % (12.0-15.0); WHITE BLOOD COUNT 8.1 x10^3/uL (4.8-10.8)
[2022-11-29 21:25] LABS: ALBUMIN 4.1 g/dL (3.2-5.5); ALBUMIN/GLOBULIN RATIO 1.3 (1.0-2.2); CALCIUM 9.2 mg/dL (8.5-10.3); CREATININE 0.9 mg/dL (0.4-1.0); TOTAL PROTEIN 7.2 g/dL (6.7-8.2)
--- NOTE | 2022-11-29 21:25 | ED Physician Documentation ---
History of Present Illness - Stated complaint Stated Complaint: C+,CHEST PX,WEAK - Chief complaint Chief Complaint: Cardiac - History obtained from History obtained from: Patient - Additonal information Additional information: Patient is a 62-year-old female presenting for evaluation of chest pain, feeling fatigued since last night. She took a COVID test this afternoon after spiking a fever and noted that it was positive. She had been previously vaccinated for COVID.She reports a nonproductive cough. She reports feeling a heaviness underneath her breast that is been constant for most of the day but has relieved since she took Tylenol for her fever this afternoon. She denies feeling short of breath. She denies nausea, vomiting, diarrhea. She does report having right-sided abdominal pain that is also been present today. She denies back pain, dysuria, hematuria. Review of Systems Constitutional: reports: Fever Cardiac: reports: Chest pain / pressure Respiratory: denies: Dyspnea GI: denies: Nausea, Vomiting : denies: Dysuria Musculoskeletal: denies: Back pain Neurologic: denies: Headache PD PAST MEDICAL HISTORY - Past Medical History Cardiovascular: Hypertension Neuro: Headaches Endocrine/Autoimmune: HyPOthyroidism Psych: Anxiety, Claustrophobia - Past Surgical History Past Surgical History: Yes - Present Medications Home Medications: Ambulatory Orders Medication Instructions Recorded Confirmed Albuterol [Ventolin Hfa] 1 puffs INH DAILY 07/27/15 04/29/20 Fluticasone [Flonase] 1 sprays TYREE DAILY 07/27/15 04/30/20 Levothyroxine [Synthroid] 125 mcg PO DAILY 07/27/15 04/30/20 Losartan Potassium 25 mg PO DAILY 04/29/20 04/30/20 Potassium Chloride 20 meq PO DAILY 04/29/20 04/29/20 hydroCHLOROthiazide 25 mg PO DAILY 04/29/20 04/29/20 [Hydrochlorothiazide] Albuterol Sulf [Ventolin Hfa 1 PRN 04/30/20 Inhaler] Gabapentin 300 mg PO DAILY PM 04/30/20 04/30/20 - Allergies Allergies/Adverse Reactions: Allergies Allergy/AdvReac Type Severity Reaction Status Date / Time lisinopril Allergy Mild swelling/co Verified 11/15/19 11:21 ugh citalopram Allergy Unknown Verified 04/30/20 08:55 fluoxetine [From Prozac] Allergy Unknown Verified 04/30/20 08:55 niacin Allergy Unknown Verified 04/30/20 08:55 paroxetine [From Paxil] Allergy Unknown Verified 04/30/20 08:57 venlafaxine Allergy Unknown Verified 04/30/20 08:57 msg Allergy Unknown Uncoded 04/30/20 08:57 - Social History Does the pt smoke?: No Smoking Status: Never smoker Does the pt drink ETOH?: No Does the pt have substance abuse?: No - Immunizations Immunizations are current?: Yes - POLST Patient has POLST: No PD ED PE NORMAL - General General: Alert and oriented X 3, No acute distress, Well developed/nourished - HEENT HEENT: Atraumatic - Neck Neck: Supple, no meningeal sign - Cardiac Cardiac: RRR - Respiratory Respiratory: No respiratory distress, Clear bilaterally - Abdomen Abdomen: Soft, Non tender, Non distended - Derm Derm: Warm and dry - Extremities Extremities: No edema, No calf tenderness / cord - Neuro Neuro: Normal speech Results - Vitals Vitals: Vital Signs - 24 hr 11/29/22 11/29/22 20:15 22:30 Temperature 37.7 C 36.9 C Heart Rate 97 82 Respiratory 16 17 Rate Blood Pressure 145/90 H 134/83 H O2 Saturation 92 95 Oxygen O2 Source Room air - EKG (time done) 2026 Rate: Rate (enter#) (89) Rhythm: NSR Ischemia: No: ST elevation c/w ischemia, ST depression - Labs Labs: Laboratory Tests 11/29/22 11/29/22 11/29/22 21:00 21:00 21:00 WBC 8.1 RBC 4.62 Hgb 13.9 Hct 41.4 MCV 89.6 MCH 30.1 MCHC 33.6 RDW 12.4 Plt Count 195 MPV 9.5 Neut # (Auto) 6.9 H Lymph # (Auto) 0.5 L [place] # (Auto) 0.6 Eos # (Auto) 0.1 Baso # (Auto) 0.0 Absolute Nucleated RBC 0.00 Nucleated RBC % 0.0 Sodium 135 Potassium 3.0 L Chloride 99 L Carbon Dioxide 25 Anion Gap 11.0 BUN 15 Creatinine 0.9 Estimated GFR (MDRD) 63 L Glucose 114 H Calcium 9.2 Total Bilirubin 1.0 AST 32 ALT 38 Alkaline Phosphatase 52 Troponin I High Sens 2.7 Total Protein 7.2 Albumin 4.1 Globulin 3.1 Albumin/Globulin Ratio 1.3 Lipase 48 Urine Color Urine Clarity Urine pH Ur Specific [place] Urine Protein Urine Glucose (UA) Urine Ketones Urine Occult Blood Urine Nitrite Urine Bilirubin Urine Urobilinogen Ur Leukocyte Esterase Ur Microscopic Review Urine Culture Comments 11/29/22 21:50 WBC RBC Hgb Hct MCV MCH MCHC RDW Plt Count MPV Neut # (Auto) Lymph # (Auto) [place] # (Auto) Eos # (Auto) Baso # (Auto) Absolute Nucleated RBC Nucleated RBC % Sodium Potassium Chloride Carbon Dioxide Anion Gap BUN Creatinine Estimated GFR (MDRD) Glucose Calcium Total Bilirubin AST ALT Alkaline Phosphatase Troponin I High Sens Total Protein Albumin Globulin Albumin/Globulin Ratio Lipase Urine Color YELLOW Urine Clarity CLEAR Urine pH 6.0 Ur Specific [place] 1.010 Urine Protein NEGATIVE Urine Glucose (UA) NEGATIVE Urine Ketones TRACE Urine Occult Blood NEGATIVE Urine Nitrite NEGATIVE Urine Bilirubin NEGATIVE Urine Urobilinogen 0.2 (NORMAL) Ur Leukocyte Esterase NEGATIVE Ur Microscopic Review NOT INDICATED Urine Culture Comments NOT INDICATED PD Medical Decision Making - ED course Complexity details: reviewed results, re-evaluated patient, d/w patient ED course: Patient presenting for evaluation of chest pain in the setting of testing positive for COVID today. She also reported right-sided abdominal pain. Her abdominal exam is benign. Her lungs sound clear. Chest x-ray was obtained which I reviewed. I also obtained labs including CBC, chemistries and troponin. Her high-sensitivity troponin is negative. I feel that ACS is unlikely given the duration of her symptoms in the setting of negative troponin. I also feel PE is Less likely as her chest symptoms have resolved prior to arrival.Her potassium is slightly low at 3.0 and she is tolerating p.o. I did repeat an abdominal exam which remained benign. Patient tested positive for COVID at home today. She has a history of asthma. I did offer Paxlovid and reviewed the risks and benefits. After this discussion patient has opted to take this medication.She is not requiring oxygen at this time does not meet criteria for hospitalization. Patient is counseled on continued supportive care as well as concerning symptoms to return for. Departure - Departure Disposition: Home, Self Care Clinical Impression: COVID-19, Hypokalemia Condition: Stable Instructions: ED Potassium Deficiency, ED Viral Syndrome Comments: You have recently tested positive for COVID-19.We have checked your labs today and found that your potassium level was slightly low and given you oral potassium. Please continue to have close follow-up with your primary care doctor regarding your potassium levels. Please continue to take your home supplements and make sure you are staying hydrated.After discussion you have opted to take Paxlovid which is an antiviral medication to help prevent Hospitalization and Severe disease related to COVID-19. If it anytime you have any new or worsening symptoms such as labored breathing, new chest pain or abdominal pain please consider return to the emergency department. Discharge Date/Time: 11/29/22 22:30
[2022-11-29] MEDS ORDERED: POTASSIUM CHLORIDE 20 MEQ TABLET PO STA (21:34)
--- NOTE | 2022-11-29 21:44 | XRAY Report ---
PROCEDURE: Chest 1 View X-Ray INDICATIONS: CP/covid TECHNIQUE: One view of the chest was acquired. COMPARISON: Chest x-ray 11/15/2017. FINDINGS: Surgical changes and devices: None. Lungs and pleura: There is pulmonary vascular prominence suggestive of mild pulmonary edema. No pleu ral effusions or pneumothorax. Mediastinum: Mediastinal contours appear normal. Heart size is normal. Bones and chest wall: No suspicious bony lesions. Overlying soft tissues appear unremarkable. IMPRESSION: 1. Pulmonary vascular prominence suggestive of mild pulmonary edema. Reviewed by: Ranjit Starkey MD on 11/29/2022 9:42 PM PST Approved by: Ranjit Starkey MD on 11/29/2022 9:42 PM PST Station ID: [id number]
[2022-11-29 22:00] LABS: BILIRUBIN,URINE NEGATIVE (NEGATIVE); GLUCOSE, URINE (UA) NEGATIVE (NEGATIVE); KETONES,URINE (UA) TRACE mg/dL (NEGATIVE); LEUKOCYTE ESTERASE, URINE NEGATIVE (NEGATIVE); NITRITE,URINE NEGATIVE (NEGATIVE); OCCULT BLOOD,URINE NEGATIVE (NEGATIVE); PROTEIN,URINE NEGATIVE (NEGATIVE); UROBILINOGEN,URINE 0.2 (NORMAL) E.U./dL (NORMAL)
[2022-11-29 22:01] LABS: CLARITY,URINE CLEAR (CLEAR)
[2022-11-29] MEDS ORDERED: NIRMATRELVIR/RITONAVIR PREPACK PO STA (22:13)
[2022-11-29 22:31] VITALS: BP 134/83
== END 2022-11-29 22:30 | disposition home or self-care (01) ==
LOC: ED 20:13
DX: U07.1 COVID-19 (principal); E87.6 Hypokalemia; I10 Essential (primary) hypertension
CPT/HCPCS: 36415; 71045; 80053; 81003; 83690; 84484; 85025; 93005; 99281; 99284; A9270; J3490; 81001; 87086

== ENCOUNTER 2023-08-28 07:50 | Outpatient (CLI) | payer MEDICAID ==
[2023-08-28 08:02] LABS: BASOPHILS # (AUTO) 0.1 10^3/uL (0.0-0.1); BASOPHILS % (AUTO) 1.2 %; EOSINOPHILS # (AUTO) 0.3 10^3/uL (0.0-0.7); EOSINOPHILS % (AUTO) 4.5 %; HCT - HEMATOCRIT 44.1 % (37.0-47.0); HGB - HEMOGLOBIN 14.6 g/dL (12.0-16.0); LYMPHOCYTES # (AUTO) 1.9 10^3/uL (1.5-3.5); LYMPHOCYTES % (AUTO) 30.5 %; MEAN CORPUSCULAR HEMOGLOBIN 30.3 pg (27.0-31.0); MEAN CORPUSCULAR HGB CONC 33.1 g/dL (32.0-36.0); MEAN CORPUSCULAR VOLUME 91.5 fL (81.0-99.0); MEAN PLATELET VOLUME 9.7 fL (7.9-10.8); MONOCYTES # (AUTO) 0.6 10^3/uL (0.0-1.0); MONOCYTES % (AUTO) 10.1 %; NEUTROPHILS # (AUTO) 3.3 10^3/uL (1.5-6.6); NEUTROPHILS % (AUTO) 53.5 %; PLT - PLATELET COUNT 275 10^3/uL (130-450); RED BLOOD COUNT 4.82 10^6/uL (4.20-5.40); RED CELL DISTRIBUTION WIDTH 12.6 % (12.0-15.0); WHITE BLOOD COUNT 6.1 x10^3/uL (4.8-10.8)
[2023-08-28 08:26] LABS: ALBUMIN 4.3 g/dL (3.2-5.5); ALBUMIN/GLOBULIN RATIO 1.7 (1.0-2.2); ALKALINE PHOSPHATASE 57 IU/L (42-121); ALT ALANINE AMINOTRANSFERASE 48 IU/L (10-60); AST ASPARTATE AMINOTRANSFERASE 34 IU/L (10-42); BILIRUBIN,TOTAL 0.8 mg/dL (0.2-1.0); BUN - BLOOD UREA NITROGEN 15 mg/dL (6-20); CALCIUM 9.6 mg/dL (8.5-10.3); CARBON DIOXIDE - CO2 31 mmol/L (21-32); CHLORIDE 101 mmol/L (101-111); CHOL/HDL RATIO 4.2 (<4.4); CHOLESTEROL 249 mg/dL; CREATININE 0.9 mg/dL (0.6-1.3); GFR - MDRD 63 (>89); GLUCOSE 114 mg/dL (74-104); HDL CHOLESTEROL 59 mg/dL; LDL CHOLESTEROL,CALCULATED 159 mg/dL; LDL/HDL RATIO 2.7 (<4.4); POTASSIUM 3.6 mmol/L (3.5-4.5); SODIUM 137 mmol/L (135-145); TOTAL PROTEIN 6.9 g/dL (6.4-8.9); TRIGLYCERIDES 153 mg/dL (48-352); VLDL CHOLESTEROL 31 mg/dL
[2023-08-28 08:41] LABS: THYROID STIMULATING HORMONE 2.23 uIU/mL (0.34-5.60)
== END 2023-08-28 07:51 | disposition home or self-care (01) ==
LOC: LAB 07:50
PROVIDERS: ATTEND Family Medicine
DX: E78.5 Hyperlipidemia, unspecified (principal); I10 Essential (primary) hypertension; E55.9 Vitamin D deficiency, unspecified
CPT/HCPCS: 36415; 80053; 80061; 82306; 83721; 84443; 85025